=== PATIENT | female | born 1995 | race African-American/Black ===

== ENCOUNTER 2018-05-16 22:29 | Emergency (ER) | payer MEDICAID, OTHER ==
[~2018-05-16] VITALS: Ht 165.1 cm; Wt 63.5 kg
[2018-05-16 22:39] VITALS: BP 148/67
== END 2018-05-17 02:39 | disposition home or self-care (01) ==
LOC: ER 22:38
DX: S92.352A Displaced fracture of fifth metatarsal bone, left foot, initial encounter for closed fracture (principal); V49.59XA Passenger injured in collision with other motor vehicles in traffic accident, initial encounter; Y93.89 Activity, other specified; Y99.8 Other external cause status; Y92.411 Interstate highway as the place of occurrence of the external cause
CPT/HCPCS: 70450; 71045; 72125; 73090; 73630; 99284; L3260